=== PATIENT | male | born 1950 | race Two or more races ===

== ENCOUNTER 2017-09-16 15:21 | Emergency (ER) | payer OTHER ==
[~2017-09-16] VITALS: Ht 175.3 cm; Wt 71.7 kg
[2017-09-16 15:41] VITALS: BP 131/80; Ht 175.3 cm; Wt 71.7 kg
== END 2017-09-16 19:03 | disposition home or self-care (01) ==
LOC: ED 15:21
DX: J06.9 Acute upper respiratory infection, unspecified (principal); H92.09 Otalgia, unspecified ear
CPT/HCPCS: 99406; J7512; J7613